=== PATIENT | male | born 1965 | race Caucasian/White ===

== ENCOUNTER → 2017-02-10 | Outpatient (CLI) | payer OTHER ==
[~2017-02-10] MED LIST: ASCO-63 PO; ASPEC81 PO; CYAN10005 PO; OMEG10007 PO; [UNRECOGNIZED DRUG - CODE]
--- NOTE | 2017-02-10 09:02 | DIAGNOSTIC IMAGING REPORT ---
TESTICULAR ULTRASOUND HISTORY: Nodule N50.9 Testicular [id number] COMPARISON: None. FINDINGS: Right testis: Maximum dimension 4.5 cm. Uniform echogenicity. Small right hydrocele. Left testis: Maximum dimension 4.1 cm. Normal vascular flow. Small left hydrocele. IMPRESSION: Normal testis. Small bilateral hydroceles. No abnormal mass or collection Electronically signed by: Patricio Wiley M.D. 02/10/2017 9:01 AM Dictated Date/Time: 02/10/2017 8:59 AM
== END | disposition home or self-care (01) ==
LOC: C.ULTRBC 08:31
PROVIDERS: ATTEND Urology
DX: N50.9 Disorder of male genital organs, unspecified (principal)